=== PATIENT | female | born 1970 | race Caucasian/White ===

== ENCOUNTER → 2016-08-21 | Outpatient (CLI) | payer BC ==
--- NOTE | 2016-08-21 11:04 | REPMRS ---
Patient History The patient states she had a clinical breast exam in 07/19 Family history of prostate cancer in maternal grandfather at age 50 or over and breast cancer in maternal grandmother at age 50 or over. Digital Woman Screen Mammo: August 21, 2016 - Exam #: [id number] Bilateral CC and MLO view(s) were taken. Technologist: Nafisa Reyna, Technologist Prior study comparison: August 07, 2015, digital woman screen mammo performed at [facility]. August 04, 2014, digital woman screen mammo performed at [facility]. FINDINGS: There are scattered fibroglandular densities. There is no evidence of cancer on this mammogram. No significant changes when compared with prior studies. ASSESSMENT: BI-RADS/ACR category 2 mammogram. Benign finding(s). Recommendation Routine screening mammogram of both breasts in 1 year (for women over age 40). This mammogram was interpreted with the aid of an FDA-approved computer-aided dectection system. Electronically Signed By: Miki Nascimento MD 08/21/16 0104
== END ==
LOC: M WHC 10:31
PROVIDERS: ATTEND Obstetrics & Gynecology
DX: Z12.31 Encounter for screening mammogram for malignant neoplasm of breast (principal)

== ENCOUNTER → 2016-10-14 | Outpatient (REF) | payer BC | LOC: M SFHCADAM 07:41 | PROVIDERS: ATTEND Physician Assistant Medical | DX: E03.9 Hypothyroidism, unspecified (principal); E55.9 Vitamin D deficiency, unspecified ==

== ENCOUNTER → 2017-02-19 | Outpatient (REF) | payer BC | LOC: M SFHCADAM 12:29 | PROVIDERS: ATTEND Physician Assistant | DX: N30.00 Acute cystitis without hematuria (principal) ==

== ENCOUNTER → 2017-04-11 | Outpatient (REF) | payer BC ==
[2017-04-11 13:39] LABS: BASO # 0.1 10^3/uL (0.0-0.2); BASO % 0.9 % (0.0-1.0); EOS # 0.1 10^3/uL (0.0-0.50); EOS % 1.9 % (0.0-3.0); IMMATURE GRANULOCYTE % 0.3 % (0-0); LYMPH # 1.9 10^3/uL (1.5-4.5); LYMPH % 29.3 % (24.0-44.0); MEAN CORPUSCULAR HEMOGLOBIN 31.4 pg (27.0-33.0); MEAN CORPUSCULAR HGB CONC 33.2 g/dl (32.0-36.5); MEAN CORPUSCULAR VOLUME 94.8 fl (80.0-96.0); MONO # 0.6 10^3/uL (0.0-0.8); MONO % 8.6 % (0.0-5.0); NEUTROPHILS # 3.8 10^3/uL (1.8-7.7); PLATELET COUNT, AUTOMATED 302 10^3/uL (150-450); RED CELL DISTRIBUTION WIDTH 12.7 % (11.5-14.5); WHITE BLOOD COUNT 6.4 10^3/uL (4.0-10.0)
[2017-04-11 13:57] LABS: ALBUMIN 4.1 GM/DL (3.2-5.2); ALBUMIN/GLOBULIN RATIO 1.46 (1.00-1.93); ALKALINE PHOSPHATASE 65 U/L (45-117); ALT/SGPT 33 U/L (12-78); ANION GAP 7 MEQ/L (8-16); AST/SGOT 15 U/L (7-37); BILIRUBIN,TOTAL 0.6 MG/DL (0.2-1.0); BLOOD UREA NITROGEN 14 MG/DL (7-18); CALCIUM LEVEL 9.3 MG/DL (8.5-10.1); CARBON DIOXIDE LEVEL 31 MEQ/L (21-32); CHLORIDE LEVEL 101 MEQ/L (98-107); CHOLESTEROL LEVEL 247 MG/DL (<200); CREATININE FOR GFR 0.72 MG/DL (0.55-1.02); GLOMERULAR FILTRATION RATE > 60.0 (>58); GLUCOSE, FASTING 129 MG/DL (70-105); POTASSIUM SERUM 4.5 MEQ/L (3.5-5.1); SODIUM LEVEL 139 MEQ/L (136-145); TOTAL PROTEIN 6.9 GM/DL (6.4-8.2); TRIGLYCERIDES LEVEL 114 MG/DL (<150)
== END ==
LOC: M SFHCADAM 07:48
PROVIDERS: ATTEND Physician Assistant Medical
DX: E03.9 Hypothyroidism, unspecified (principal); E66.01 Morbid (severe) obesity due to excess calories; E55.9 Vitamin D deficiency, unspecified

== ENCOUNTER → 2017-08-25 | Outpatient (CLI) | payer BC | LOC: M WHC 07:37 | DX: Z12.31 Encounter for screening mammogram for malignant neoplasm of breast (principal); Z80.3 Family history of malignant neoplasm of breast ==

== ENCOUNTER → 2017-09-29 | Outpatient (REF) | payer BC ==
[2017-09-29 13:11] LABS: TOTAL 25(OH) VITAMIN D 40.6 NG/ML (30.0-100.0)
== END ==
LOC: M SFHCADAM 08:12
DX: E03.9 Hypothyroidism, unspecified (principal); E55.9 Vitamin D deficiency, unspecified
CPT/HCPCS: 84443

== ENCOUNTER → 2018-03-30 | Outpatient (REF) | payer BC ==
[2018-03-30 12:46] LABS: BASO # 0.1 10^3/uL (0.0-0.2); BASO % 0.8 % (0.0-1.0); EOS # 0.1 10^3/uL (0.0-0.50); EOS % 2.2 % (0.0-3.0); HEMATOCRIT 38.3 % (36.0-47.0); HEMOGLOBIN 12.8 g/dl (12.0-15.5); IMMATURE GRANULOCYTE % 0.2 % (0-3.0); MEAN CORPUSCULAR HEMOGLOBIN 31.5 pg (27.0-33.0); MEAN CORPUSCULAR HGB CONC 33.4 g/dl (32.0-36.5); MEAN CORPUSCULAR VOLUME 94.3 fl (80.0-96.0); MONO # 0.6 10^3/uL (0.0-0.8); MONO % 8.9 % (0.0-5.0); NEUTROPHILS # 3.6 10^3/uL (1.8-7.7); NEUTROPHILS % 56.9 % (36.0-66.0); PLATELET COUNT, AUTOMATED 281 10^3/uL (150-450); RED BLOOD COUNT 4.06 10^6/uL (4.00-5.40); RED CELL DISTRIBUTION WIDTH 12.9 % (11.5-14.5); WHITE BLOOD COUNT 6.3 10^3/uL (4.0-10.0)
[2018-03-30 12:58] LABS: ALBUMIN 3.9 GM/DL (3.2-5.2); ALBUMIN/GLOBULIN RATIO 1.44 (1.00-1.93); ALKALINE PHOSPHATASE 80 U/L (45-117); ALT/SGPT 26 U/L (12-78); ANION GAP 4 MEQ/L (8-16); AST/SGOT 21 U/L (7-37); BILIRUBIN,TOTAL 0.4 MG/DL (0.2-1.0); BLOOD UREA NITROGEN 15 MG/DL (7-18); CALCIUM LEVEL 9.1 MG/DL (8.5-10.1); CARBON DIOXIDE LEVEL 31 MEQ/L (21-32); CHLORIDE LEVEL 104 MEQ/L (98-107); CHOLESTEROL LEVEL 231 MG/DL (<200); CHOLESTEROL RISK RATIO 4.442 (<5); FREE T4 1.08 NG/DL (0.76-1.46); GLOMERULAR FILTRATION RATE > 60.0 (>58); GLUCOSE, FASTING 115 MG/DL (70-100); HDL CHOLESTEROL 52 MG/DL (>40); LDL CHOLESTEROL 161 MG/DL (<100); NON-HDL-C 179 MG/DL; POTASSIUM SERUM 4.4 MEQ/L (3.5-5.1); SODIUM LEVEL 139 MEQ/L (136-145); TOTAL PROTEIN 6.6 GM/DL (6.4-8.2); TRIGLYCERIDES LEVEL 92 MG/DL (<150)
[2018-03-30 13:00] LABS: TOTAL 25(OH) VITAMIN D 25.6 NG/ML (30.0-100.0)
== END ==
LOC: M SFHCADAM 07:59
DX: E03.9 Hypothyroidism, unspecified (principal); I10 Essential (primary) hypertension; E55.9 Vitamin D deficiency, unspecified

== ENCOUNTER → 2018-05-19 | Outpatient (REF) | payer BC ==
[~2018-05-19] MED LIST: ASPI1TAB15 PO; HYDR25TAB PO; LEVO125T4 PO; LISI10TA4 PO; VALA1TAB2
[2018-05-19 13:46] LABS: HEMOGLOBIN A1c 6.2 %
[2018-05-19 14:13] LABS: FREE T4 1.46 NG/DL (0.76-1.46); THYROID STIMULATING HORMONE 0.608 uIU/ML (0.358-3.740)
== END ==
LOC: M SFHCADAM 09:23
PROVIDERS: ATTEND Physician Assistant Medical
DX: E03.9 Hypothyroidism, unspecified (principal); E78.00 Pure hypercholesterolemia, unspecified; R73.01 Impaired fasting glucose

== ENCOUNTER 2018-05-31 12:44 | Emergency (ER) | payer BC ==
[~2018-05-31] VITALS: Ht 157.5 cm; Wt 104.5 kg
[2018-05-31] MEDS ORDERED: LISI10TA4 PO (13:05)
[2018-05-31] MEDS ORDERED: HYDR25TAB PO (13:05)
[2018-05-31] MEDS ORDERED: LEVO125T4 PO (13:05)
[2018-05-31] MEDS ORDERED: VALA1TAB2 (13:05)
[2018-05-31 13:37] LABS: BASO % 0.6 % (0.0-1.0); EOS # 0.1 10^3/uL (0.0-0.50); EOS % 0.8 % (0.0-3.0); HEMATOCRIT 40.2 % (36.0-47.0); HEMOGLOBIN 13.5 g/dl (12.0-15.5); LYMPH # 1.9 10^3/uL (1.5-4.5); LYMPH % 29.7 % (24.0-44.0); MEAN CORPUSCULAR HEMOGLOBIN 30.9 pg (27.0-33.0); MEAN CORPUSCULAR HGB CONC 33.6 g/dl (32.0-36.5); MONO # 0.6 10^3/uL (0.0-0.8); MONO % 9.2 % (0.0-5.0); NEUTROPHILS # 3.7 10^3/uL (1.8-7.7); NEUTROPHILS % 59.4 % (36.0-66.0); PLATELET COUNT, AUTOMATED 288 10^3/uL (150-450); RED BLOOD COUNT 4.37 10^6/uL (4.00-5.40); WHITE BLOOD COUNT 6.3 10^3/uL (4.0-10.0)
[2018-05-31 13:41] LABS: INR 0.97; PROTHROMBIN TIME 12.9 SECONDS (12.1-14.4)
[2018-05-31 13:42] LABS: PARTIAL THROMBOPLASTIN TIME 27.2 SECONDS (25.4-37.6)
[2018-05-31 13:51] LABS: ALBUMIN 4.2 GM/DL (3.2-5.2); ALT/SGPT 40 U/L (12-78); BILIRUBIN,DIRECT 0.1 MG/DL (0.0-0.2); BILIRUBIN,TOTAL 0.6 MG/DL (0.2-1.0); BLOOD UREA NITROGEN 13 MG/DL (7-18); CALCIUM LEVEL 9.6 MG/DL (8.5-10.1); CARBON DIOXIDE LEVEL 27 MEQ/L (21-32); CHLORIDE LEVEL 106 MEQ/L (98-107); CPK CREATINE PHOSPHOKINASE 71 U/L (26-192); GLOMERULAR FILTRATION RATE > 60.0 (>58); GLUCOSE, FASTING 104 MG/DL (70-100); MB/CK RELATIVE INDEX 1.41 (< OR =4); NT-PRO BNP 90 PG/ML (<125); POTASSIUM SERUM 3.6 MEQ/L (3.5-5.1); SODIUM LEVEL 141 MEQ/L (136-145); TOTAL PROTEIN 7.5 GM/DL (6.4-8.2); TROPONIN I < 0.02 NG/ML (< 0.10)
--- NOTE | 2018-05-31 14:02 | REP ---
Clinical: Acute chest pain . Comparison: 05/02/2006. Findings: The mediastinum and cardiac silhouette are stable and within normal limits for portable technique. The lung guerrero are clear without acute consolidation, effusion, or pneumothorax. Skeletal structures are intact. Impression: No acute cardiopulmonary process appreciated. Electronically Signed by Epi James MD 05/31/2018 01:54 P
[2018-05-31] MEDS ORDERED: ASPI1TAB15 PO (15:26)
[2018-05-31 16:15] LABS: CK-MB VALUE MASS < 1.0 NG/ML (<3.6); CPK CREATINE PHOSPHOKINASE 61 U/L (26-192); MB/CK RELATIVE INDEX 1.64 (< OR =4); TROPONIN I < 0.02 NG/ML (< 0.10)
[2018-05-31 16:30] VITALS: BP 158/90
--- NOTE | 2018-05-31 17:30 | ECGEPIP ---
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
--- NOTE | 2018-06-01 13:44 | ECGEPIP ---
Stationary ECG Study [facility] - ED Test Date: 2018-05-31 Pat Name: AGUILA CESPEDES Department: Room: - Gender: F Medical Office Rep: BJ : 1970 Requested By: TERESA Dinh Order Number: [id number] Reading MD: Blanca Garcia Measurements Intervals [place] Rate: 67 P: 37 ND: 151 QRS: 4 QRSD: 96 T: -12 QT: 386 QTc: 409 Interpretive Statements SINUS RHYTHM NSTTW ABNORMALITY COMPARED 05/31/18 Electronically Signed On 06-01-2018 13:43:55 EST by Blanca Garcia
== END 2018-05-31 16:32 | disposition home or self-care (01) ==
LOC: M ED 12:44
DX: R07.89 Other chest pain (principal); R00.0 Tachycardia, unspecified; R94.31 Abnormal electrocardiogram [ECG] [EKG]; I10 Essential (primary) hypertension; E78.5 Hyperlipidemia, unspecified; E03.9 Hypothyroidism, unspecified; E66.9 Obesity, unspecified; Z79.82 Long term (current) use of aspirin; Z79.899 Other long term (current) drug therapy

== ENCOUNTER → 2018-09-08 | Outpatient (CLI) | payer BC ==
--- NOTE | 2018-09-08 11:15 | REPMRS ---
Patient History The patient states she had a clinical breast exam in 07/2018. Family history of breast cancer at age 50 or over in maternal grandmother, prostate cancer at age 50 or over in maternal grandfather. Digital Woman Screen Mammo: September 08, 2018 - Exam #: [id number] Bilateral CC and MLO view(s) were taken. Technologist: Gay Frausto Technologist Prior study comparison: August 25, 2017, digital woman screen mammo performed at [facility]. August 21, 2016, digital woman screen mammo performed at [facility]. August 07, 2015, digital woman screen mammo performed at [facility]. FINDINGS: There are scattered fibroglandular densities. There has been no change in the appearance of the mammogram from the prior studies. There is a stable pattern of asymmetric breast parenchyma in the lateral aspect of the left breast unchanged from multiple prior studies. Some involutional changes noted.There is no interval development of dominant mass, architectural distortion, or clustered microcalcification suggestive of malignancy. 3-D tomosynthesis shows no additional findings. Assessment: BI-RADS/ACR category 2 mammogram. Benign Findings. Recommendation Routine screening mammogram of both breasts in 1 year (for women over age 40). This patient's Lifetime Breast Cancer RIsk is estimated at 14.8 %. This mammogram was interpreted with the aid of an FDA-approved computer-aided dectection system. Electronically Signed By: Corona Foss MD 09/08/18 0198
== END ==
LOC: M WHC 07:53
PROVIDERS: ATTEND Obstetrics & Gynecology
DX: Z12.31 Encounter for screening mammogram for malignant neoplasm of breast (principal); Z80.3 Family history of malignant neoplasm of breast; Z80.42 Family history of malignant neoplasm of prostate

== ENCOUNTER → 2018-12-29 | Outpatient (REF) | payer BC ==
[2018-12-29 19:34] LABS: FREE T4 1.38 NG/DL (0.76-1.46); THYROID STIMULATING HORMONE 0.138 uIU/ML (0.358-3.740)
== END ==
LOC: M SFHCADAM 13:12
PROVIDERS: ATTEND Physician Assistant Medical
DX: E03.9 Hypothyroidism, unspecified (principal)

== ENCOUNTER → 2019-03-22 | Outpatient (REF) | payer BC ==
[2019-03-22 13:36] LABS: BASO # 0.1 10^3/uL (0.0-0.2); BASO % 0.9 % (0.0-1.0); EOS # 0.1 10^3/uL (0.0-0.5); EOS % 1.4 % (0.0-3.0); HEMATOCRIT 39.4 % (36.0-47.0); LYMPH # 1.7 10^3/uL (1.5-5.0); LYMPH % 30.9 % (24.0-44.0); MEAN CORPUSCULAR HEMOGLOBIN 30.8 pg (27.0-33.0); MEAN CORPUSCULAR VOLUME 93.4 fl (80.0-96.0); MONO # 0.6 10^3/uL (0.0-0.8); NEUTROPHILS # 3.1 10^3/uL (1.5-8.5); NEUTROPHILS % 55.6 % (36.0-66.0); PLATELET COUNT, AUTOMATED 269 10^3/uL (150-450); RED BLOOD COUNT 4.22 10^6/uL (4.00-5.40); WHITE BLOOD COUNT 5.6 10^3/uL (4.0-10.0)
[2019-03-22 13:51] LABS: ALBUMIN 3.9 GM/DL (3.2-5.2); ALT/SGPT 29 U/L (12-78); BILIRUBIN,TOTAL 0.6 MG/DL (0.2-1.0); BLOOD UREA NITROGEN 17 MG/DL (7-18); CALCIUM LEVEL 9.3 MG/DL (8.5-10.1); CARBON DIOXIDE LEVEL 30 MEQ/L (21-32); CHLORIDE LEVEL 103 MEQ/L (98-107); CHOLESTEROL LEVEL 201 MG/DL (<200); CHOLESTEROL RISK RATIO 3.589 (<5); CREATININE FOR GFR 0.67 MG/DL (0.55-1.30); FREE T4 1.59 NG/DL (0.76-1.46); GLOMERULAR FILTRATION RATE > 60.0 (>51); GLUCOSE, FASTING 117 MG/DL (70-100); HDL CHOLESTEROL 56 MG/DL (>40); LDL CHOLESTEROL 128 MG/DL (<100); NON-HDL-C 145 MG/DL; POTASSIUM SERUM 4.5 MEQ/L (3.5-5.1); SODIUM LEVEL 139 MEQ/L (136-145); THYROID STIMULATING HORMONE 0.047 uIU/ML (0.358-3.740); TOTAL PROTEIN 6.9 GM/DL (6.4-8.2); TRIGLYCERIDES LEVEL 85 MG/DL (<150)
[2019-03-22 14:00] LABS: HEMOGLOBIN A1c 6.3 %
== END ==
LOC: M SFHCADAM 08:22
PROVIDERS: ATTEND Physician Assistant Medical
DX: E03.9 Hypothyroidism, unspecified (principal); R73.01 Impaired fasting glucose; E78.00 Pure hypercholesterolemia, unspecified

== ENCOUNTER → 2019-06-28 | Outpatient (REF) | payer BC ==
[~2019-06-28] MED LIST changes: -VALA1TAB2; +VALA1TAB64
== END ==
LOC: M LAB REF 12:05
PROVIDERS: ATTEND Nurse Practitioner Family
DX: N39.0 Urinary tract infection, site not specified (principal)

== ENCOUNTER → 2019-09-21 | Outpatient (REF) | payer BC ==
[~2019-09-21] MED LIST changes: +VALA1TAB5; -VALA1TAB64
[2019-09-21 13:45] LABS: CHOLESTEROL RISK RATIO 3.934 (<5); FREE T4 1.52 NG/DL (0.76-1.46); THYROID STIMULATING HORMONE 0.016 uIU/ML (0.358-3.740); TOTAL 25(OH) VITAMIN D 35.6 NG/ML (30.0-100.0)
[2019-09-21 13:58] LABS: MALB URINE SIEMENS 29.6 MG/L; MAU/CREAT RATIO 12.2 MCG/MG (0.0-30.0)
== END ==
LOC: M SFHCADAM 08:21
PROVIDERS: ATTEND Physician Assistant Medical
DX: E03.9 Hypothyroidism, unspecified (principal); R73.03 Prediabetes; I10 Essential (primary) hypertension; E55.9 Vitamin D deficiency, unspecified

== ENCOUNTER → 2019-10-13 | Outpatient (CLI) | payer BC ==
[~2019-10-13] MED LIST changes: +METF-839 PO; +SYNT112T2 PO
--- NOTE | 2019-10-13 09:48 | REPMRS ---
Patient History The patient states she had a clinical breast exam in August 2019. Family history of breast cancer at age 50 or over in maternal grandmother, prostate cancer at age 50 or over in maternal grandfather. Digital Woman Screen Mammo: October 13, 2019 - Exam #: [id number] Bilateral CC and MLO view(s) were taken. Technologist: Leah Alvarado Technologist Prior study comparison: September 08, 2018, bilateral digital woman screen mammo performed at [facility]. August 25, 2017, digital woman screen mammo performed at [facility]. August 21, 2016, digital woman screen mammo performed at [facility]. FINDINGS: There are scattered fibroglandular densities. The Volpara volumetric breast density category is:B. Stable asymmetric breast parenchymal opacity again seen upper outer quadrant on the left. There has been no change in the appearance of the mammogram from the prior studies. There is a mild amount of scattered fibroglandular density which is fairly symmetric. There is no interval development of dominant mass, architectural distortion, or grouped microcalcification suggestive of malignancy. 3-D tomosynthesis shows no additional findings. Assessment: BI-RADS/ACR category 2 mammogram. Benign Findings. Recommendation Routine screening mammogram of both breasts in 1 year (for women over age 40). This patient's Lifetime Breast Cancer Risk is estimated at 14.6 %. This mammogram was interpreted with the aid of an FDA-approved computer-aided dectection system. Electronically Signed By: Corona Foss MD 10/13/19 0990
--- NOTE | 2019-10-21 14:48 | DEXA ---
AP SPINE L1 - L4 1.481 2.3 2.8 LT FEMUR TOTAL 1.195 1.5 2.0 LT NECK 1.166 0.9 1.8 RT FEMUR TOTAL 1.285 2.2 2.7 RT NECK 1.307 1.9 2.8 TOTAL BODY TOTAL OTHER COMMENTS: Normal bone densitometry of the spine and hips. FOLLOW-UP: Recommendation for the next bone density exam: 5 years. DORYS
== END ==
LOC: M WHC 08:06
PROVIDERS: ATTEND Obstetrics & Gynecology
DX: Z12.31 Encounter for screening mammogram for malignant neoplasm of breast (principal); Z13.820 Encounter for screening for osteoporosis; Z80.3 Family history of malignant neoplasm of breast

== ENCOUNTER → 2019-10-26 | Outpatient (CLI) | payer BC | LOC: M LABSMTC 09:41 | PROVIDERS: ATTEND Anesthesiology | DX: Z01.818 Encounter for other preprocedural examination (principal); Z11.59 Encounter for screening for other viral diseases | CPT/HCPCS: C9803; U0003 ==

== ENCOUNTER 2019-10-29 06:22 | Day surgery (SDC) | payer BC ==
[~2019-10-29] VITALS: Ht 160 cm; Wt 101.5 kg
[~2019-10-29 06:22] MED LIST changes: +LIDOCAINE 1% MDV 20ML VIAL SQ PRN
[2019-10-29 06:47] LABS: HEMATOCRIT 38.8 % (36.0-47.0); HEMOGLOBIN 12.9 g/dl (12.0-15.5); MEAN CORPUSCULAR HGB CONC 33.2 g/dl (32.0-36.5); MEAN CORPUSCULAR VOLUME 93.3 fl (80.0-96.0); PLATELET COUNT, AUTOMATED 271 10^3/uL (150-450); RED BLOOD COUNT 4.16 10^6/uL (4.00-5.40)
[2019-10-29] MEDS ORDERED: LIDOCAINE W/EPINEPHRINE 1% 20ML VIAL As Ordered ONE (06:57)
[2019-10-29] MEDS ORDERED: ceFAZolin SOD 2 GM in IV 1 EA IV ONE (07:00)
[2019-10-29] MEDS ORDERED: LR 1,000 ML IV ONE (07:00)
[2019-10-29] MEDS ORDERED: LIDOCAINE 2% 100MG/5ML SDV (FOR ANES.) As Ordered ONE (07:06)
[2019-10-29] MEDS ORDERED: fentaNYL 100 MCG/2 ML INJECTION (J3010) As Ordered ONE (07:06)
[2019-10-29] MEDS ORDERED: propofoL 200 MG/20 ML VIAL As Ordered ONE ×2 (07:06→08:15)
[2019-10-29] MEDS ORDERED: MIDAZOLAM INJ 2MG/2ML VIAL (J2250 PER 1MG) As Ordered ONE (07:06)
[2019-10-29] MEDS ORDERED: dexameTHASONE 4 MG/ML 1ML VIAL (J1100 PER 1MG) As Ordered ONE (07:37)
[2019-10-29] MEDS ORDERED: ACETAMINOPHEN 1000MG 100ML IV BTL (OFIRMEV) (J0131 PER 10MG) As Ordered ONE (07:37)
[2019-10-29] MEDS ORDERED: ONDANSETRON 4MG/2ML VIAL As Ordered ONE (07:40)
[2019-10-29] MEDS ORDERED: METOCLOPRAMIDE INJ 10MG/2ML VIAL (J2765 PER 1) As Ordered ONE (07:41)
[2019-10-29] MEDS ORDERED: KETOROLAC 60 MG/2 ML VIAL As Ordered ONE (07:41)
[2019-10-29] MEDS ORDERED: ONDANSETRON 4MG/2ML VIAL IV PRN (08:45)
[2019-10-29] MEDS ORDERED: fentaNYL 100 MCG/2 ML INJECTION (J3010) IV PRN (08:45)
[2019-10-29] MEDS ORDERED: LR 1,000 ML IV SCH (08:45)
[2019-10-29] MEDS ORDERED: oxyCODONE 5MG TAB PO PRN (08:45)
[2019-10-29] MEDS ORDERED: PERCOCET 5MG/325MG TAB PO PRN (09:00)
[2019-10-29 10:35] VITALS: BP 170/86
[2019-10-29] MEDS ORDERED: IBUPROFEN 800 MG TAB PO SCH (14:00)
--- NOTE | 2019-11-05 00:30 | RO ---
DATE OF PROCEDURE: 10/29/2019 Dorothea is a 49-year-old female with a history of stress incontinence. After having a urodynamic study in the office, a decision was made to proceed with a tension-free vaginal taping via an obturator approach and cystoscopy. PREOPERATIVE DIAGNOSIS: Stress urinary incontinence. POSTOPERATIVE DIAGNOSIS: Stress urinary incontinence. PROCEDURE: 1. Tension-free vaginal taping via an obturator approach. 2. Cystoscopy. ANESTHESIA: LMA. SURGEON: Dr. Al Clarke COMPLICATIONS: None. ESTIMATED BLOOD LOSS: Less than 150 mL. DESCRIPTION OF PROCEDURE: After obtaining informed consent, the patient was taken to the operating room where anesthesia was found to be adequate. She was then draped and prepped in the usual sterile fashion in the dorsal lithotomy position. At this point, a Traore catheter was placed in the bladder. We then placed a line at the level of the urethral meatus, then 2 cm above that line a parallel line was drawn. The exit alee for TVT-O device was then marked 2 cm away from the from the lateral fold of the thigh. This was marked, 1% lidocaine solution was used at that area. We then placed two Allis below the urethral meatus; that area was also injected. And a #5 blade was used, and a small vertical incision was made using the Metzenbaum in a 45-degree fashion. The obturator foramen was punctured on the right. The Gynecare TVT-O device was then inserted on that side and exited at the premarked sign. Cystoscopy was then performed. No evidence of any bladder injury noted. The device was not in the bladder. The bladder was then drained. The opposite side was done in a similar fashion. The device exited at the predetermined alee. We then removed the introducer, and the tape was then pulled through the exit alee, the introducer was cut away. We then placed a Stephanie clamp below the urethral meatus and the tape, and the tape was then adjusted loosely underneath the mid urethra. Suprapubic pressure was applied to adjust the tape. The tape was adjusted in a proper fashion. The sheath was then removed, the excess tape cut away. The incision made in the vagina was then closed using a figure-of-8 of #2-0 Vicryl suture. The exit alee was then closed using Dermabond. Good hemostasis noted. Bladder drained. The patient tolerated procedure well. She was then transferred to recovery room in stable condition. DORYS
== END 2019-10-29 10:44 | disposition home or self-care (01) ==
LOC: M SDC 06:22
PROVIDERS: ATTEND Obstetrics & Gynecology
DX: N39.3 Stress incontinence (female) (male) (principal); I10 Essential (primary) hypertension; E03.9 Hypothyroidism, unspecified; R73.03 Prediabetes; Z79.899 Other long term (current) drug therapy; Z79.84 Long term (current) use of oral hypoglycemic drugs
CPT/HCPCS: 36415; 57288; 85027; 86850; 86900; 86901; C1771; J0131; J0690; J1100; J1885; J2250; J2405; J2765; J3010

== ENCOUNTER → 2019-12-17 | Outpatient (REF) | payer BC ==
[~2019-12-17] MED LIST changes: +ASPI-546 PO; -ASPI1TAB15 PO; -LIDOCAINE 1% MDV 20ML VIAL SQ PRN
== END ==
LOC: M SFHCADAM 13:23
PROVIDERS: ATTEND Physician Assistant Medical
DX: E03.9 Hypothyroidism, unspecified (principal)

== ENCOUNTER → 2020-02-28 | Outpatient (REF) | payer BC ==
[2020-02-28 14:16] LABS: ALBUMIN 3.8 GM/DL (3.2-5.2); ALT/SGPT 23 U/L (12-78); BILIRUBIN,TOTAL 0.4 MG/DL (0.2-1.0); BLOOD UREA NITROGEN 13 MG/DL (7-18); CALCIUM LEVEL 9.3 MG/DL (8.5-10.1); CARBON DIOXIDE LEVEL 30 MEQ/L (21-32); CHLORIDE LEVEL 105 MEQ/L (98-107); CHOLESTEROL LEVEL 218 MG/DL (<200); CHOLESTEROL RISK RATIO 3.253 (<5); CREATININE FOR GFR 0.76 MG/DL (0.55-1.30); GLOMERULAR FILTRATION RATE > 60.0 (>51); GLUCOSE, FASTING 110 MG/DL (70-100); HDL CHOLESTEROL 67 MG/DL (>40); LDL CHOLESTEROL 139 MG/DL (<100); NON-HDL-C 151 MG/DL; POTASSIUM SERUM 4.9 MEQ/L (3.5-5.1); SODIUM LEVEL 139 MEQ/L (136-145); TOTAL PROTEIN 6.7 GM/DL (6.4-8.2); TRIGLYCERIDES LEVEL 61 MG/DL (<150)
[2020-02-28 14:34] LABS: HEMOGLOBIN A1c 5.5 %
== END ==
LOC: M SFHCADAM 12:45
PROVIDERS: ATTEND Physician Assistant Medical
DX: E03.9 Hypothyroidism, unspecified (principal); I10 Essential (primary) hypertension; R73.03 Prediabetes

== ENCOUNTER → 2020-10-26 | Outpatient (CLI) | payer BC ==
[~2020-10-26] MED LIST changes: +HYDR-3490 PO; -HYDR25TAB PO; +LISI10TA22 PO; -LISI10TA4 PO
--- NOTE | 2020-10-26 08:34 | REPMRS ---
Patient History The patient states she had a clinical breast exam in July 2020. Family history of breast cancer at age 50 or over in maternal grandmother, prostate cancer at age 50 or over in maternal grandfather. No breast complaints today Patient signed the MRS sheet Priors on PACS Patient Identification Verified Digital Woman Screen Mammo: October 26, 2020 - Exam #: [id number] Bilateral CC and MLO view(s) were taken. Technologist: Beverly Thomas, Technologist Prior study comparison: October 13, 2019, bilateral digital woman screen mammo performed at [facility]. September 08, 2018, bilateral digital woman screen mammo performed at [facility]. August 25, 2017, digital woman screen mammo performed at [facility]. June 10, 2011, bilateral breast MRI, performed at [facility]. FINDINGS: There are scattered fibroglandular densities. The Volpara volumetric breast density category is:B. Stable asymmetric breast opacity is again seen in the upper outer quadrant of the left breast unchanged from multiple prior studies. This may be a benign breast hamartoma or asymmetric breast parenchyma. In any event, it is unchanged. Left breast it is again noted to appears slightly larger than the right. This is also unchanged. There has been no change in the appearance of the mammogram from the prior studies. There is a mild amount of scattered fibroglandular density which is fairly symmetric. There is no interval development of dominant mass, architectural distortion, or grouped microcalcification suggestive of malignancy. 3-D tomosynthesis shows no additional findings. Assessment: BI-RADS/ACR category 2 mammogram. Benign Findings. Recommendation Routine screening mammogram of both breasts in 1 year (for women over age 40). This patient's [facility] Lifetime Breast Cancer Risk is estimated at 14.3 %. This mammogram was interpreted with the aid of an FDA-approved computer-aided dectection system. Electronically Signed By: Corona Foss MD 10/26/20 0833
== END ==
LOC: M WHC 07:15
PROVIDERS: ATTEND Advanced Practice Midwife
DX: Z12.31 Encounter for screening mammogram for malignant neoplasm of breast (principal); Z80.3 Family history of malignant neoplasm of breast; Z80.42 Family history of malignant neoplasm of prostate

== ENCOUNTER → 2020-12-15 | Outpatient (REF) | payer BC ==
[2020-12-15 13:52] LABS: HEMATOCRIT 40.8 % (36.0-47.0); HEMOGLOBIN 13.3 g/dl (12.0-15.5); MEAN CORPUSCULAR HEMOGLOBIN 31.4 pg (27.0-33.0); MEAN CORPUSCULAR HGB CONC 32.6 g/dl (32.0-36.5); MEAN CORPUSCULAR VOLUME 96.5 fl (80.0-96.0); PLATELET COUNT, AUTOMATED 299 10^3/uL (150-450); RED BLOOD COUNT 4.23 10^6/uL (4.00-5.40); WHITE BLOOD COUNT 5.9 10^3/uL (4.0-10.0)
[2020-12-15 14:23] LABS: APPEARANCE, URINE CLEAR (CLEAR); BACTERIA, URINE AUTO NEGATIVE (NEGATIVE); BILIRUBIN, URINE AUTO NEGATIVE (NEGATIVE); BLOOD UREA NITROGEN 14 MG/DL (7-18); BLOOD, URINE BLOOD NEGATIVE (NEGATIVE); CALCIUM LEVEL 9.4 MG/DL (8.5-10.1); CARBON DIOXIDE LEVEL 31 MEQ/L (21-32); CHLORIDE LEVEL 107 MEQ/L (98-107); COLOR, URINE STRAW (YELLOW); CREATININE FOR GFR 0.63 MG/DL (0.55-1.30); GLOMERULAR FILTRATION RATE > 60.0 (>51); GLUCOSE, FASTING 94 MG/DL (70-100); GLUCOSE, URINE (UA) AUTO NEGATIVE (NEGATIVE); KETONE, URINE AUTO NEGATIVE (NEGATIVE); LEUKOCYTE ESTERASE, URINE AUTO NEGATIVE (NEGATIVE); NITRITE, URINE AUTO NEGATIVE (NEGATIVE); POTASSIUM SERUM 4.6 MEQ/L (3.5-5.1); PROTEIN, URINE AUTO NEGATIVE (NEGATIVE); RBC, URINE AUTO 0 /HPF (0-3); SODIUM LEVEL 140 MEQ/L (136-145); SPECIFIC GRAVITY URINE AUTO 1.013 (1.002-1.035); SQUAMOUS EPITHELIAL CELL UR AU 0 /HPF (0-6); UROBILINOGEN, URINE AUTO 0.2 mg/dL (0.0-2.0); WBC, URINE AUTO 1 /HPF (0-3)
== END ==
LOC: M SFHCADAM 11:19
PROVIDERS: ATTEND Physician Assistant
DX: Z01.818 Encounter for other preprocedural examination (principal)

== ENCOUNTER → 2021-02-19 | Outpatient (REF) | payer BC ==
[2021-02-19 12:01] LABS: BASO # 0.1 10^3/uL (0.0-0.2); BASO % 1.4 % (0.0-1.0); EOS # 0.2 10^3/uL (0.0-0.5); EOS % 2.9 % (0.0-3.0); HEMATOCRIT 36.3 % (36.0-47.0); HEMOGLOBIN 11.7 g/dl (12.0-15.5); LYMPH # 1.6 10^3/uL (1.5-5.0); LYMPH % 31.1 % (24.0-44.0); MEAN CORPUSCULAR HEMOGLOBIN 30.7 pg (27.0-33.0); MEAN CORPUSCULAR HGB CONC 32.2 g/dl (32.0-36.5); MEAN CORPUSCULAR VOLUME 95.3 fl (80.0-96.0); MONO # 0.5 10^3/uL (0.0-0.8); NEUTROPHILS # 2.8 10^3/uL (1.5-8.5); NEUTROPHILS % 55.2 % (36.0-66.0); PLATELET COUNT, AUTOMATED 281 10^3/uL (150-450); RED BLOOD COUNT 3.81 10^6/uL (4.00-5.40); WHITE BLOOD COUNT 5.1 10^3/uL (4.0-10.0)
[2021-02-19 12:21] LABS: HEMOGLOBIN A1c 5.6 %
[2021-02-19 12:43] LABS: ALBUMIN 3.6 GM/DL (3.2-5.2); ALT/SGPT 22 U/L (12-78); BILIRUBIN,TOTAL 0.5 MG/DL (0.2-1.0); BLOOD UREA NITROGEN 15 MG/DL (7-18); CALCIUM LEVEL 9.5 MG/DL (8.5-10.1); CARBON DIOXIDE LEVEL 31 MEQ/L (21-32); CHLORIDE LEVEL 105 MEQ/L (98-107); CHOLESTEROL LEVEL 246 MG/DL (<200); CHOLESTEROL RISK RATIO 4.315 (<5); CREATININE FOR GFR 0.61 MG/DL (0.55-1.30); GLOMERULAR FILTRATION RATE > 60.0 (>51); GLUCOSE, FASTING 103 MG/DL (70-100); HDL CHOLESTEROL 57 MG/DL (>40); LDL CHOLESTEROL 160 MG/DL (<100); NON-HDL-C 189 MG/DL; POTASSIUM SERUM 4.3 MEQ/L (3.5-5.1); SODIUM LEVEL 141 MEQ/L (136-145); TOTAL 25(OH) VITAMIN D 38.3 NG/ML (30.0-100.0); TOTAL PROTEIN 6.6 GM/DL (6.4-8.2); TRIGLYCERIDES LEVEL 147 MG/DL (<150)
== END ==
LOC: M SFHCADAM 08:19
PROVIDERS: ATTEND Physician Assistant Medical
DX: I10 Essential (primary) hypertension (principal); E03.9 Hypothyroidism, unspecified; E66.01 Morbid (severe) obesity due to excess calories; E78.00 Pure hypercholesterolemia, unspecified; R73.03 Prediabetes

== ENCOUNTER → 2021-10-15 | Outpatient (REF) | payer BC ==
[2021-10-15 13:53] LABS: BASO # 0.1 10^3/uL (0.0-0.2); BASO % 1.1 % (0.0-1.0); EOS # 0.1 10^3/uL (0.0-0.5); EOS % 2.1 % (0.0-3.0); HEMATOCRIT 35.6 % (36.0-47.0); HEMOGLOBIN 11.7 g/dl (12.0-15.5); LYMPH # 1.5 10^3/uL (1.5-5.0); LYMPH % 29.4 % (24.0-44.0); MEAN CORPUSCULAR HEMOGLOBIN 31.4 pg (27.0-33.0); MEAN CORPUSCULAR HGB CONC 32.9 g/dl (32.0-36.5); MEAN CORPUSCULAR VOLUME 95.4 fl (80.0-96.0); MONO # 0.6 10^3/uL (0.0-0.8); MONO % 10.9 % (2.0-8.0); NEUTROPHILS # 2.9 10^3/uL (1.5-8.5); NEUTROPHILS % 56.1 % (36.0-66.0); PLATELET COUNT, AUTOMATED 251 10^3/uL (150-450); RED BLOOD COUNT 3.73 10^6/uL (4.00-5.40); WHITE BLOOD COUNT 5.2 10^3/uL (4.0-10.0)
[2021-10-15 14:25] LABS: PERCENT SATURATION 18.3 % (13.2-45.0); THYROID STIMULATING HORMONE 2.81 uIU/ML (0.358-3.740)
== END ==
LOC: M SFHCADAM 08:24
PROVIDERS: ATTEND Physician Assistant Medical
DX: D64.9 Anemia, unspecified (principal)

== ENCOUNTER → 2022-01-15 | Outpatient (CLI) | payer BC | LOC: M WHC 09:35 | PROVIDERS: ATTEND Obstetrics & Gynecology | DX: Z12.31 Encounter for screening mammogram for malignant neoplasm of breast (principal); Z13.820 Encounter for screening for osteoporosis; M85.89 Other specified disorders of bone density and structure, multiple sites ==

== ENCOUNTER → 2022-04-15 | Outpatient (REF) | payer BC ==
[2022-04-15 15:47] LABS: BASO # 0.1 10^3/uL (0.0-0.2); EOS # 0.1 10^3/uL (0.0-0.5); EOS % 1.7 % (0.0-3.0); HEMATOCRIT 39.2 % (36.0-47.0); LYMPH # 1.3 10^3/uL (1.5-5.0); LYMPH % 22.6 % (24.0-44.0); MEAN CORPUSCULAR HEMOGLOBIN 31.6 pg (27.0-33.0); MEAN CORPUSCULAR HGB CONC 33.2 g/dl (32.0-36.5); MEAN CORPUSCULAR VOLUME 95.1 fl (80.0-96.0); MONO # 0.6 10^3/uL (0.0-0.8); MONO % 10.2 % (2.0-8.0); NEUTROPHILS # 3.8 10^3/uL (1.5-8.5); PLATELET COUNT, AUTOMATED 280 10^3/uL (150-450); RED BLOOD COUNT 4.12 10^6/uL (4.00-5.40); WHITE BLOOD COUNT 5.9 10^3/uL (4.0-10.0)
[2022-04-15 16:57] LABS: ALBUMIN 4.4 GM/DL (3.2-5.2); ALT/SGPT 30 U/L (12-78); BILIRUBIN,TOTAL 0.6 MG/DL (0.2-1.0); BLOOD UREA NITROGEN 14 MG/DL (7-18); CARBON DIOXIDE LEVEL 30 MEQ/L (21-32); CHLORIDE LEVEL 104 MEQ/L (98-107); CHOLESTEROL LEVEL 249 MG/DL (<200); FERRITIN 35 NG/ML (8-252); GLOMERULAR FILTRATION RATE > 60.0 (>51); GLUCOSE, FASTING 124 MG/DL (70-100); HDL CHOLESTEROL 65 MG/DL (>40); LDL CHOLESTEROL 161 MG/DL (<100); NON-HDL-C 184 MG/DL; POTASSIUM SERUM 4.1 MEQ/L (3.5-5.1); SODIUM LEVEL 138 MEQ/L (136-145); TOTAL PROTEIN 7.1 GM/DL (6.4-8.2); TRIGLYCERIDES LEVEL 117 MG/DL (<150)
[2022-04-15 16:59] LABS: CREATININE, URINE 92.4 MG/DL; MALB URINE SIEMENS 7.8 MG/L; MAU/CREAT RATIO 8.4 MCG/MG (0.0-30.0)
[2022-04-15 19:12] LABS: TOTAL 25(OH) VITAMIN D 38.6 NG/ML (30.0-100.0); VITAMIN B12 LEVEL 1203 PG/ML (247-911)
== END ==
LOC: M SFHCADAM 08:22
PROVIDERS: ATTEND Physician Assistant Medical
DX: E03.9 Hypothyroidism, unspecified (principal); I10 Essential (primary) hypertension; E78.00 Pure hypercholesterolemia, unspecified; E55.9 Vitamin D deficiency, unspecified; D64.9 Anemia, unspecified; R73.03 Prediabetes

== ENCOUNTER → 2022-07-09 | Outpatient (REF) | payer BC ==
[2022-07-09 21:37] LABS: APPEARANCE, URINE MANUAL HAZY (CLEAR); BILIRUBIN, URINE MANUAL NEGATIVE (NEGATIVE); BLOOD URINE MANUAL NEGATIVE (NEGATIVE); COLOR, URINE MANUAL LT YELLOW (YELLOW); GLUCOSE, URINE (UA) MANUAL NEGATIVE (NEGATIVE); KETONE, URINE MANUAL NEGATIVE (NEGATIVE); LEUKOCYTE ESTERASE, URINE MAN POSITIVE (NEGATIVE); NITRITE, URINE MANUAL NEGATIVE (NEGATIVE); PH,URINE MAN 5.5 UNITS (5.0 - 7.0); PROTEIN, URINE MANUAL NEGATIVE (NEGATIVE); SPECIFIC GRAVITY,URINE MANUAL 1.015 (1.002-1.035); UROBILINOGEN, URINE MANUAL NORMAL (NORMAL)
[2022-07-09 21:44] LABS: WBC, URINE TNTC /hpf (0-3)
[2022-07-09 21:45] LABS: SQUAMOUS EPITHELIAL CELL URINE SMALL AMOUNT /hpf (SMALL AMT)
[2022-07-09 21:46] LABS: BACTERIA, URINE MOD AMOUNT; HYALINE CAST, URINE NONE SEEN /lpf (0-1)
== END ==
LOC: M LAB REF 21:18
PROVIDERS: ATTEND Physician Assistant Medical
DX: N39.0 Urinary tract infection, site not specified (principal)

== ENCOUNTER → 2022-09-10 | Outpatient (REF) | payer BC ==
[2022-09-10 22:01] LABS: APPEARANCE, URINE CLEAR (CLEAR); BACTERIA, URINE AUTO 1+ (NEGATIVE); BILIRUBIN, URINE AUTO NEGATIVE (NEGATIVE); BLOOD, URINE BLOOD NEGATIVE (NEGATIVE); COLOR, URINE AMBER (YELLOW); GLUCOSE, URINE (UA) AUTO NEGATIVE (NEGATIVE); KETONE, URINE AUTO NEGATIVE (NEGATIVE); LEUKOCYTE ESTERASE, URINE AUTO NEGATIVE (NEGATIVE); MUCUS, URINE SMALL (NEGATIVE); NITRITE, URINE AUTO POSITIVE (NEGATIVE); PROTEIN, URINE AUTO 1+ mg/dL (NEGATIVE); RBC, URINE AUTO 1 /HPF (0-3); SPECIFIC GRAVITY URINE AUTO 1.023 (1.002-1.035); SQUAMOUS EPITHELIAL CELL UR AU 3 /HPF (0-6); WBC, URINE AUTO 29 /HPF (0-3)
== END ==
LOC: M LAB REF 21:28
PROVIDERS: ATTEND Physician Assistant Medical
DX: N39.0 Urinary tract infection, site not specified (principal)

== ENCOUNTER → 2022-10-29 | Outpatient (REF) | payer BC ==
[2022-10-29 14:14] LABS: BASO # 0.1 10^3/uL (0.0-0.2); BASO % 1.1 % (0.0-1.0); EOS # 0.1 10^3/uL (0.0-0.5); EOS % 2.1 % (0.0-3.0); HEMATOCRIT 37.7 % (36.0-47.0); HEMOGLOBIN 12.2 g/dl (12.0-15.5); LYMPH # 1.2 10^3/uL (1.5-5.0); LYMPH % 27.8 % (24.0-44.0); MEAN CORPUSCULAR HEMOGLOBIN 30.7 pg (27.0-33.0); MEAN CORPUSCULAR HGB CONC 32.4 g/dl (32.0-36.5); MONO # 0.4 10^3/uL (0.0-0.8); MONO % 9.8 % (2.0-8.0); NEUTROPHILS # 2.6 10^3/uL (1.5-8.5); NEUTROPHILS % 58.7 % (36.0-66.0); PLATELET COUNT, AUTOMATED 255 10^3/uL (150-450); RED BLOOD COUNT 3.97 10^6/uL (4.00-5.40); WHITE BLOOD COUNT 4.4 10^3/uL (4.0-10.0)
[2022-10-29 14:38] LABS: PERCENT SATURATION 24.1 % (13.2-45.0)
[2022-10-29 14:43] LABS: FERRITIN 29.4 NG/ML (7.3-270.7); FOLATE 9.1 NG/ML (>5.4)
[2022-10-29 14:44] LABS: THYROID STIMULATING HORMONE 18.017 uIU/ML (0.55-4.78)
== END ==
LOC: M SFHCADAM 08:24
PROVIDERS: ATTEND Physician Assistant Medical
DX: E03.9 Hypothyroidism, unspecified (principal); D64.9 Anemia, unspecified

== ENCOUNTER → 2023-01-17 | Outpatient (CLI) | payer BC | LOC: M WHC 08:18 | PROVIDERS: ATTEND Obstetrics & Gynecology | DX: Z12.31 Encounter for screening mammogram for malignant neoplasm of breast (principal) ==

== ENCOUNTER → 2023-04-28 | Outpatient (REF) | payer BC ==
[2023-04-28 13:52] LABS: BASO % 0.7 % (0.0-1.0); EOS # 0.1 10^3/uL (0.0-0.5); EOS % 1.5 % (0.0-3.0); HEMATOCRIT 36.1 % (36.0-47.0); HEMOGLOBIN 11.8 g/dl (12.0-15.5); LYMPH # 1.2 10^3/uL (1.5-5.0); LYMPH % 25.6 % (24.0-44.0); MEAN CORPUSCULAR HEMOGLOBIN 30.8 pg (27.0-33.0); MEAN CORPUSCULAR HGB CONC 32.7 g/dl (32.0-36.5); MEAN CORPUSCULAR VOLUME 94.3 fl (80.0-96.0); MONO # 0.5 10^3/uL (0.0-0.8); MONO % 10.5 % (2.0-8.0); NEUTROPHILS # 2.8 10^3/uL (1.5-8.5); NEUTROPHILS % 61.3 % (36.0-66.0); PLATELET COUNT, AUTOMATED 231 10^3/uL (150-450); RED BLOOD COUNT 3.83 10^6/uL (4.00-5.40); WHITE BLOOD COUNT 4.6 10^3/uL (4.0-10.0)
[2023-04-28 14:14] LABS: CREATININE, URINE 188.1 MG/DL; MAU/CREAT RATIO 5.8 MCG/MG (0.0-30.0)
[2023-04-28 14:16] LABS: HEMOGLOBIN A1c 6.2 % (4.0-6.0)
[2023-04-28 14:21] LABS: ALBUMIN 3.7 G/DL (3.2-5.2); ALKALINE PHOSPHATASE 75 U/L (46-116); ALT/SGPT 46 U/L (7.0-40); AST/SGOT 48 U/L (<34); BILIRUBIN,TOTAL 0.5 MG/DL (0.3-1.2); BLOOD UREA NITROGEN 18 MG/DL (9-23); CARBON DIOXIDE LEVEL 29 MMOL/L (20-31); CHLORIDE LEVEL 106 MMOL/L (98-107); CHOLESTEROL LEVEL 214 MG/DL (<200); CREATININE FOR GFR 0.67 MG/DL (0.55-1.30); GLOMERULAR FILTRATION RATE > 60.0 (>51); GLUCOSE, FASTING 130 MG/DL (60-100); HDL CHOLESTEROL 52.1 MG/DL (>40); LDL CHOLESTEROL 135.3 MG/DL (<100); NON-HDL-C 161.9 MG/DL; POTASSIUM SERUM 4.7 MMOL/L (3.5-5.1); SODIUM LEVEL 140 MMOL/L (136-145); THYROID STIMULATING HORMONE 5.536 uIU/ML (0.55-4.78); TOTAL 25(OH) VITAMIN D 34.4 NG/ML (20.0-100.0); TOTAL PROTEIN 6.1 G/DL (5.7-8.2); TRIGLYCERIDES LEVEL 133 MG/DL (<150)
== END ==
LOC: M SFHCADAM 08:21
PROVIDERS: ATTEND Physician Assistant Medical
DX: R73.03 Prediabetes (principal); E03.9 Hypothyroidism, unspecified; I10 Essential (primary) hypertension; E55.9 Vitamin D deficiency, unspecified

== ENCOUNTER → 2023-11-11 | Outpatient (REF) | payer BC ==
[2023-11-11 13:38] LABS: APPEARANCE, URINE HAZY (CLEAR); BACTERIA, URINE AUTO NEGATIVE (NEGATIVE); BILIRUBIN, URINE AUTO NEGATIVE (NEGATIVE); BLOOD, URINE BLOOD NEGATIVE (NEGATIVE); COLOR, URINE YELLOW (YELLOW); GLUCOSE, URINE (UA) AUTO NEGATIVE (NEGATIVE); KETONE, URINE AUTO NEGATIVE (NEGATIVE); LEUKOCYTE ESTERASE, URINE AUTO TRACE (NEGATIVE); MUCUS, URINE SMALL (NEGATIVE); NITRITE, URINE AUTO NEGATIVE (NEGATIVE); PROTEIN, URINE AUTO NEGATIVE (NEGATIVE); RBC, URINE AUTO 1 /HPF (0-3); SQUAMOUS EPITHELIAL CELL UR AU 4 /HPF (0-6); UROBILINOGEN, URINE AUTO 0.2 mg/dL (0.0-2.0); WBC, URINE AUTO 5 /HPF (0-3)
[2023-11-11 14:09] LABS: TOTAL 25(OH) VITAMIN D 41.4 NG/ML (20.0-100.0)
[2023-11-11 14:10] LABS: THYROID STIMULATING HORMONE 9.649 uIU/ML (0.55-4.78)
[2023-11-11 14:14] LABS: ALBUMIN 4.2 G/DL (3.2-5.2); ALKALINE PHOSPHATASE 84 U/L (46-116); ALT/SGPT 29 U/L (7.0-40); AST/SGOT 16 U/L (<34); BILIRUBIN,TOTAL 0.6 MG/DL (0.3-1.2); BLOOD UREA NITROGEN 17 MG/DL (9-23); CARBON DIOXIDE LEVEL 29 MMOL/L (20-31); CHLORIDE LEVEL 104 MMOL/L (98-107); CHOLESTEROL LEVEL 250 MG/DL (<200); CHOLESTEROL RISK RATIO 4.03 (<5); CREATININE FOR GFR 0.75 MG/DL (0.55-1.30); GLOMERULAR FILTRATION RATE > 60.0 (>51); GLUCOSE, FASTING 113 MG/DL (60-100); HDL CHOLESTEROL 61.9 MG/DL (>40); LDL CHOLESTEROL 166.9 MG/DL (<100); NON-HDL-C 188.1 MG/DL; SODIUM LEVEL 140 MMOL/L (136-145); TOTAL PROTEIN 6.9 G/DL (5.7-8.2); TRIGLYCERIDES LEVEL 106 MG/DL (<150)
[2023-11-11 14:27] LABS: HEMOGLOBIN A1c 6.3 % (4.0-6.0)
== END ==
LOC: M SFHCADAM 10:21
PROVIDERS: ATTEND Physician Assistant Medical
DX: R73.03 Prediabetes (principal); E03.9 Hypothyroidism, unspecified; E55.9 Vitamin D deficiency, unspecified; E78.00 Pure hypercholesterolemia, unspecified; R39.15 Urgency of urination

== ENCOUNTER → 2024-01-20 | Outpatient (CLI) | payer BC | LOC: M WHC 11:18 | PROVIDERS: ATTEND Obstetrics & Gynecology | DX: Z12.31 Encounter for screening mammogram for malignant neoplasm of breast (principal); Z13.820 Encounter for screening for osteoporosis; M85.88 Other specified disorders of bone density and structure, other site; R92.323 Mammographic fibroglandular density, bilateral breasts ==

== ENCOUNTER → 2024-04-15 | Outpatient (REF) | payer BC ==
[2024-04-15 18:19] LABS: BASO # 0.1 10^3/uL (0.0-0.2); BASO % 0.9 % (0.0-1.0); EOS # 0.1 10^3/uL (0.0-0.5); EOS % 1.2 % (0.0-3.0); HEMATOCRIT 40.5 % (36.0-47.0); HEMOGLOBIN 13.3 g/dl (12.0-15.5); LYMPH # 1.8 10^3/uL (1.5-5.0); LYMPH % 27.5 % (24.0-44.0); MEAN CORPUSCULAR HEMOGLOBIN 31.4 pg (27.0-33.0); MEAN CORPUSCULAR HGB CONC 32.8 g/dl (32.0-36.5); MEAN CORPUSCULAR VOLUME 95.5 fl (80.0-96.0); MONO # 0.6 10^3/uL (0.0-0.8); NEUTROPHILS # 4.1 10^3/uL (1.5-8.5); NEUTROPHILS % 61.2 % (36.0-66.0); PLATELET COUNT, AUTOMATED 282 10^3/uL (150-450); RED BLOOD COUNT 4.24 10^6/uL (4.00-5.40); WHITE BLOOD COUNT 6.7 10^3/uL (4.0-10.0)
[2024-04-15 18:45] LABS: ALBUMIN 4.3 G/DL (3.2-5.2); ALKALINE PHOSPHATASE 77 U/L (35-104); ALT/SGPT 29 U/L (7.0-40); AST/SGOT 18 U/L (<34); BILIRUBIN,TOTAL 0.8 MG/DL (0.3-1.2); BLOOD UREA NITROGEN 13 MG/DL (9-23); CALCIUM LEVEL 10.3 MG/DL (8.5-10.1); CARBON DIOXIDE LEVEL 32 MMOL/L (20-31); CHLORIDE LEVEL 102 MMOL/L (98-107); CREATININE FOR GFR 0.72 MG/DL (0.55-1.30); GLOMERULAR FILTRATION RATE > 60.0 (>51); GLUCOSE, FASTING 86 MG/DL (60-100); POTASSIUM SERUM 4.3 MMOL/L (3.5-5.1); SODIUM LEVEL 140 MMOL/L (136-145)
[2024-04-15 18:46] LABS: CREATININE, URINE 30.7 MG/DL; MALB URINE SIEMENS < 3.0 MG/L
[2024-04-15 18:49] LABS: FREE T4 1.64 NG/DL (0.89-1.76); TOTAL 25(OH) VITAMIN D 39.1 NG/ML (20.0-100.0)
[2024-04-15 18:59] LABS: HEMOGLOBIN A1c 6.4 % (4.0-6.0)
== END ==
LOC: M SFHCADAM 13:56
PROVIDERS: ATTEND Physician Assistant Medical
DX: R73.03 Prediabetes (principal); I10 Essential (primary) hypertension; E03.9 Hypothyroidism, unspecified; E55.9 Vitamin D deficiency, unspecified

== ENCOUNTER → 2024-04-19 | Outpatient (REF) | payer BC ==
[2024-04-19 14:31] LABS: APPEARANCE, URINE HAZY (CLEAR); BACTERIA, URINE AUTO 1+ (NEGATIVE); BILIRUBIN, URINE AUTO NEGATIVE (NEGATIVE); BLOOD, URINE BLOOD NEGATIVE (NEGATIVE); COLOR, URINE YELLOW (YELLOW); GLUCOSE, URINE (UA) AUTO NEGATIVE (NEGATIVE); KETONE, URINE AUTO NEGATIVE (NEGATIVE); LEUKOCYTE ESTERASE, URINE AUTO TRACE (NEGATIVE); MUCUS, URINE SMALL (NEGATIVE); NITRITE, URINE AUTO NEGATIVE (NEGATIVE); PROTEIN, URINE AUTO NEGATIVE (NEGATIVE); RBC, URINE AUTO 2 /HPF (0-3); SPECIFIC GRAVITY URINE AUTO 1.016 (1.002-1.035); SQUAMOUS EPITHELIAL CELL UR AU 2 /HPF (0-6); UROBILINOGEN, URINE AUTO 0.2 mg/dL (0.0-2.0); WBC, URINE AUTO 13 /HPF (0-3)
== END ==
LOC: M SFHCADAM 10:19
PROVIDERS: ATTEND Physician Assistant Medical
DX: R39.15 Urgency of urination (principal)

== ENCOUNTER → 2024-06-15 | Outpatient (REF) | payer BC ==
[2024-06-15 21:26] LABS: APPEARANCE, URINE CLOUDY (CLEAR); BACTERIA, URINE AUTO NEGATIVE (NEGATIVE); BILIRUBIN, URINE AUTO NEGATIVE (NEGATIVE); BLOOD, URINE BLOOD NEGATIVE (NEGATIVE); COLOR, URINE YELLOW (YELLOW); GLUCOSE, URINE (UA) AUTO NEGATIVE (NEGATIVE); KETONE, URINE AUTO NEGATIVE (NEGATIVE); LEUKOCYTE ESTERASE, URINE AUTO 2+ (NEGATIVE); MUCUS, URINE SMALL (NEGATIVE); NITRITE, URINE AUTO NEGATIVE (NEGATIVE); PROTEIN, URINE AUTO 1+ mg/dL (NEGATIVE); RBC, URINE AUTO 5 /HPF (0-3); SQUAMOUS EPITHELIAL CELL UR AU 1 /HPF (0-6); UROBILINOGEN, URINE AUTO 0.2 mg/dL (0.0-2.0); WBC, URINE AUTO TNTC /HPF (0-3)
== END ==
LOC: M LAB REF 20:54
PROVIDERS: ATTEND Physician Assistant Medical
DX: N39.0 Urinary tract infection, site not specified (principal)

== ENCOUNTER → 2024-12-13 | Outpatient (REF) | payer BC ==
[2024-12-13 14:30] LABS: APPEARANCE, URINE CLEAR (CLEAR); BACTERIA, URINE AUTO NEGATIVE (NEGATIVE); BILIRUBIN, URINE AUTO NEGATIVE (NEGATIVE); BLOOD, URINE BLOOD NEGATIVE (NEGATIVE); GLUCOSE, URINE (UA) AUTO NEGATIVE (NEGATIVE); KETONE, URINE AUTO NEGATIVE (NEGATIVE); LEUKOCYTE ESTERASE, URINE AUTO NEGATIVE (NEGATIVE); MUCUS, URINE SMALL (NEGATIVE); NITRITE, URINE AUTO NEGATIVE (NEGATIVE); PROTEIN, URINE AUTO NEGATIVE (NEGATIVE); RBC, URINE AUTO 0 /HPF (0-3); SPECIFIC GRAVITY URINE AUTO 1.025 (1.002-1.035); SQUAMOUS EPITHELIAL CELL UR AU 1 /HPF (0-6); UROBILINOGEN, URINE AUTO 4.0 mg/dL (0.0-2.0); WBC, URINE AUTO 6 /HPF (0-3)
== END ==
LOC: M SMT 12:57
PROVIDERS: ATTEND Physician Assistant
DX: N39.0 Urinary tract infection, site not specified (principal)

== ENCOUNTER → 2025-01-20 | Outpatient (CLI) | payer BC | LOC: M WHC 10:51 | PROVIDERS: ATTEND Obstetrics & Gynecology | DX: Z12.31 Encounter for screening mammogram for malignant neoplasm of breast (principal); R92.313 Mammographic fatty tissue density, bilateral breasts ==

== ENCOUNTER → 2025-04-26 | Outpatient (REF) | payer BC ==
[2025-04-26 13:03] LABS: ALT/SGPT 24 U/L (7.0-40); AST/SGOT 20 U/L (<34); CALCIUM LEVEL 9.1 MG/DL (8.5-10.1); CARBON DIOXIDE LEVEL 31 MMOL/L (20-31); CHLORIDE LEVEL 104 MMOL/L (98-107); CHOLESTEROL LEVEL 219 MG/DL (<200); CHOLESTEROL RISK RATIO 4.13 (<5); CREATININE FOR GFR 0.64 MG/DL (0.55-1.30); GLOMERULAR FILTRATION RATE > 90.0 (>51); LDL CHOLESTEROL 138.1 MG/DL (<100); NON-HDL-C 166.1 MG/DL; POTASSIUM SERUM 4.1 MMOL/L (3.5-5.1); SODIUM LEVEL 144 MMOL/L (136-145); TRIGLYCERIDES LEVEL 140 MG/DL (<150)
[2025-04-26 13:11] LABS: FREE T4 1.81 NG/DL (0.89-1.76)
[2025-04-26 13:12] LABS: TOTAL 25(OH) VITAMIN D 54.7 NG/ML (20.0-100.0)
[2025-04-26 13:14] LABS: ESTIMATED AVERAGE GLUCOSE 137.0 MG/DL (60-110)
== END ==
LOC: M LABWUC 11:59
PROVIDERS: ATTEND Physician Assistant Medical
DX: I10 Essential (primary) hypertension (principal); E03.9 Hypothyroidism, unspecified; E55.9 Vitamin D deficiency, unspecified; E78.00 Pure hypercholesterolemia, unspecified; R73.03 Prediabetes; E66.01 Morbid (severe) obesity due to excess calories